=== PATIENT | female | born 1975 | race Caucasian/White ===

== ENCOUNTER → 2020-04-07 | Outpatient (CLI) | payer BC ==
[2006-07-01 08:30] VITALS: TEMP 98.3
== END ==
LOC: MC.RAD 06:56
DX: Z12.31 Encounter for screening mammogram for malignant neoplasm of breast (principal)

== ENCOUNTER → 2022-07-27 | Outpatient (CLI) | payer BC ==
[2006-07-01 08:30] VITALS: TEMP 98.3
== END ==
LOC: COL.VAS 07:30
DX: I10 Essential (primary) hypertension (principal)